=== PATIENT | male | born 1940 | race Caucasian/White ===

== ENCOUNTER 2018-12-02 06:19 | Emergency (ER) | payer OTHER ==
--- NOTE | 2018-12-02 06:26 | ED ---
General Adult HPI - General Stated complaint: GI Bleed Time Seen by Provider: 12/02/18 06:21 - History of Present Illness Initial comments: Kush is a 78-year-old [place] gentleman who is brought to the emergency department today by EMS and [facility] for medical [facility]. [facility] was [facility] however during intake he was noted to have a cough that was productive of bloody sputum in the advised he needs to come to the ER for medical clearance. Patient denies any complaints he denies any chest pain palpitations or shortness of breath. He reports he's been compliant with his Tuesday dialysis and attended dialysis yesterday. He denies any recent coughing he denies seeing blood in his sputum. Was born in [place]. We did contact the patient's son who states that the patient doesn't fact have a mass on his lung there is concerned that this may be cancer. There is a plan for the patient to return to [place] where he will continue to pursue diagnostics of the mass on his lung. He does confirm that the patient does occasionally have mild hemoptysis. - Related Data Home Medications Medication Instructions Recorded Confirmed Furosemide [Lasix] 20 mg PO DIRECTED 12/02/18 12/02/18 Insulin Degludec [Tresiba 15 units SQ DIRECTED 12/02/18 12/02/18 Flextouch U-100] Insulin Lispro [humaLOG Kwikpen] 10 unit SQ AC-TID 12/02/18 12/02/18 Lisinopril 40 mg PO DIRECTED 12/02/18 12/02/18 NIFEdipine XL [Procardia Xl] 30 mg PO DIRECTED 12/02/18 12/02/18 Potassium Chloride [K-Tab ER] 10 meq PO DAILY 12/02/18 12/02/18 Torsemide [Demadex] 10 mg PO DIRECTED 12/02/18 12/02/18 Review of Systems ROS Statement: Those systems with pertinent positive or pertinent negative responses have been documented in the HPI. ROS Other: All systems not noted in ROS Statement are negative. General Exam - General Exam Comments Initial Comments: Physical Exam GENERAL: Chronically ill appearing dialysis patient in no acute distress HENT: Normocephalic, Atraumatic. EYES: PERRL, EOMI PULMONARY: Unlabored respirations. No audible rales rhonchi or wheezing was noted. CARDIOVASCULAR: There is a regular rate and rhythm without any murmurs gallops or rubs. Dialysis port in right upper chest ABDOMEN: Soft and nontender with normal bowel sounds. SKIN: Skin is clear with no lesions or rashes and otherwise unremarkable. : Deferred NEUROLOGIC: Patient is alert and oriented x3. Moving all extremities spontaneously MUSCULOSKELETAL: Normal extremities with adequate strength and full range of motion. No lower extremity swelling or edema. No calf tenderness. PSYCHIATRIC: Normal psychiatric evaluation. Limitations: no limitations Course Vital Signs 12/02/18 12/02/18 12/02/18 06:21 06:47 07:40 Temperature 98.7 F Pulse Rate 60 60 Respiratory 18 20 18 Rate Blood Pressure 163/89 148/65 O2 Sat by Pulse 98 95 Oximetry Medical Decision Making - Medical Decision Making Patient was seen and evaluated, history obtained by patient and son Patient with PMH of lung mass, frequent hemoptysis - unchnaged recently Labs with Hgb of 12.9 Labs consistent with CKD - mild hyperkalemia, no EKG changes, however not scheduled for dialysis until tuesday therefore will treat Patient medically cleared for discharge in care of [facility] - Lab Data Result diagrams: 12/02/18 06:32 12/02/18 06:32 Lab Results 12/02/18 12/02/18 12/02/18 Range/Units 06:32 06:32 06:32 WBC 8.7 (3.8-10.6) k/uL RBC 4.38 (4.30-5.90) m/uL Hgb 12.9 L (13.0-17.5) gm/dL Hct 40.8 (39.0-53.0) % MCV 93.3 (80.0-100.0) fL MCH 29.5 (25.0-35.0) pg MCHC 31.6 (31.0-37.0) g/dL RDW 17.7 H (11.5-15.5) % Plt Count 320 (150-450) k/uL Neutrophils % 69 % Lymphocytes % 17 % Monocytes % 6 % Eosinophils % 5 % Basophils % 1 % Neutrophils # 6.0 (1.3-7.7) k/uL Lymphocytes # 1.5 (1.0-4.8) k/uL Monocytes # 0.5 (0-1.0) k/uL Eosinophils # 0.5 (0-0.7) k/uL Basophils # 0.1 (0-0.2) k/uL Anisocytosis Slight PT 10.0 (9.0-12.0) sec INR 0.9 (<1.2) APTT 25.1 (22.0-30.0) sec Sodium 138 (137-145) mmol/L Potassium 6.1 H* (3.5-5.1) mmol/L Chloride 96 L (98-107) mmol/L Carbon Dioxide 30 (22-30) mmol/L Anion Gap 12 mmol/L BUN 43 H (9-20) mg/dL Creatinine 5.13 H (0.66-1.25) mg/dL Est GFR (CKD-EPI)AfAm 11 (>60 ml/min/1.73 sqM) Est GFR (CKD-EPI)NonAf 10 (>60 ml/min/1.73 sqM) Glucose 161 H (74-99) mg/dL Calcium 9.6 (8.4-10.2) mg/dL Magnesium 2.2 (1.6-2.3) mg/dL Total Bilirubin 0.7 (0.2-1.3) mg/dL AST 36 (17-59) U/L ALT 30 (21-72) U/L Alkaline Phosphatase 132 H (38-126) U/L Total Protein 8.4 H (6.3-8.2) g/dL Albumin 4.5 (3.5-5.0) g/dL Disposition Clinical Impression: Hemoptysis, unspecified, Lung mass, ESRD (end stage renal disease) on dialysis Disposition: HOME SELF-CARE Condition: Stable Instructions (If sedation given, give patient instructions): Hemoptysis (ED) Is patient prescribed a controlled substance at d/c from ED?: No Referrals: None,Stated [Primary Care Provider] - 1-2 days
[2018-12-02 06:32] VITALS: PULSE 60; TEMP 98.7
[2018-12-02 06:47] LABS: Anisocytosis Slight; Basophils # (A) 0.1 k/uL (0-0.2); Basophils % (A) 1 %; Eosinophils # (A) 0.5 k/uL (0-0.7); Eosinophils % (A) 5 %; HCT 40.8 % (39.0-53.0); HGB 12.9 gm/dL (13.0-17.5); Lymphocytes # (A) 1.5 k/uL (1.0-4.8); Lymphocytes % (A) 17 %; MCH 29.5 pg (25.0-35.0); MCHC 31.6 g/dL (31.0-37.0); MCV 93.3 fL (80.0-100.0); Mean Platelet Volume 6.9; Monocytes # (A) 0.5 k/uL (0-1.0); Monocytes % (A) 6 %; Neutrophils % (A) 69 %; Platelet Count 320 k/uL (150-450); RBC 4.38 m/uL (4.30-5.90); RDW 17.7 % (11.5-15.5); WBC 8.7 k/uL (3.8-10.6)
[2018-12-02 06:58] LABS: Albumin 4.5 g/dL (3.5-5.0); Calcium 9.6 mg/dL (8.4-10.2); Magnesium 2.2 mg/dL (1.6-2.3); Total Bilirubin 0.7 mg/dL (0.2-1.3); Total Protein 8.4 g/dL (6.3-8.2)
--- NOTE | 2018-12-02 06:59 | XR ---
EXAM: XR Chest, 2 Views CLINICAL HISTORY: Hemoptysis. TECHNIQUE: Frontal and lateral views of the chest. COMPARISON: No relevant prior studies available. FINDINGS: Lungs: Retrocardiac opacity which may be related to pneumonia versus other process. Pleural space: No significant pleural effusion. No pneumothorax. Heart: Unremarkable. No cardiomegaly. Mediastinum: Unremarkable. No mediastinal widening. Bones/joints: Mild degenerative changes. Tubes, lines and devices: Right chest wall Port-A-Cath with tip in superior vena cava. IMPRESSION: 1. Retrocardiac opacity which may be related to pneumonia versus other process. Clinical correlation recommended. CT can further assess as clinically warranted. Follow-up radiograph recommended following completion of treatment to assess for resolution. 2. Right chest wall Port-A-Cath with tip in superior vena cava.
[2018-12-02 07:00] LABS: INR 0.9 (<1.2); Partial Thromboplastin Time 25.1 sec (22.0-30.0)
[2018-12-02 07:04] LABS: Potassium 6.1 mmol/L (3.5-5.1)
[2018-12-02] MEDS ORDERED: SODIUM POLYSTYRENE SULFONATE 15 GM/60 ML BOTTLE PO STA (07:08)
[2018-12-02] MEDS ORDERED: INSULIN REGULAR 100 UNIT/ML VIAL IV ONE (07:09)
[2018-12-02] MEDS ORDERED: SODIUM BICARB 8.4% 50 ML SYR (1 MEQ/ML) IV STA (07:09)
[2018-12-02] MEDS ORDERED: DEXTROSE 50% SYRINGE 50 ML IVP STA (07:09)
[2018-12-02] MEDS ORDERED: CALCIUM GLUCONATE 1 GM in SODIUM CHLORIDE 0.9% 100 ML IVPB ONE (07:30)
[2018-12-02 07:42] VITALS: BP 148/65; RESP 18
== END 2018-12-02 08:52 | disposition home or self-care (01) ==
LOC: EC 06:19
DX: N18.6 End stage renal disease (principal); R91.8 Other nonspecific abnormal finding of lung field; R04.2 Hemoptysis; Z79.4 Long term (current) use of insulin; Z79.899 Other long term (current) drug therapy; Z99.2 Dependence on renal dialysis
CPT/HCPCS: 36415; 93005; 80053; 83735; 85025; 85610; 85730; 71046; 99285; 96365; 96375 ×2; J0610